=== PATIENT | male | born 1995 | race Caucasian/White ===

== ENCOUNTER 2018-01-22 07:41 | Emergency (ER) | payer OTHER ==
[2018-01-22 07:46] VITALS: BMI 25.0
--- NOTE | 2018-01-22 08:01 | PDOC ---
History of Present Illness - General Chief Complaint: Nausea/Vomiting Stated Complaint: N/V Time Seen by Provider: 01/22/18 07:44 History Source: Patient (Patient walked in complaining of abdominal pain, nausea and vomiting x 3 days . He ate [place] [employer] [place] with friends, they did not have any symptoms.) Exam Limitations: No Limitations - History of Present Illness Timing/Duration: constant, intermittent Severity: moderate Associated Symptoms: reports: loss of appetite, nausea/vomiting Past History - Travel Traveled outside of the country in the last 30 days: No Close contact w/someone who was outside of country & ill: No - Past Medical History Allergies/Adverse Reactions: Allergies Allergy/AdvReac Type Severity Reaction Status Date / Time No Known Allergies Allergy Verified 01/22/18 07:43 Home Medications: Ambulatory Orders NK [No Known Home Medication] 04/12/16 CVA: No COPD: No CHF: No - Surgical History Other Surgical History: Denied any surgical history 01/22/18 08:15 - Family Disease History Family Disease History: Other: Grandparents (cholecystectomy last year) - Immunization History Immunization Up to Date: Yes - Suicide/Smoking/Psychosocial Hx Smoking History: Current every day smoker Number of Cigarettes Smoked Daily: 7 Information on smoking cessation initiated: Yes 'Breaking Loose' booklet given: 01/22/18 Hx Alcohol Use: No Drug/Substance Use Hx: Yes Substance Use Type: Marijuana Review of Systems - Review of Systems Able to Perform ROS?: Yes Is the patient limited Yakut proficient: Yes Constitutional: Yes: See HPI HEENTM: No: Symptoms Reported, See HPI, Eye Pain, Blurred Vision, Tearing, Recent change in vision, Double Vision, Cataracts, Ear Pain, Ocular Prothesis, Ear Discharge, Nose Pain, Nose Congestion, Tinnitus, Nose Bleeding, Hearing Loss , Throat Pain, Throat Swelling, Mouth Pain, Dental Problems, Difficulty Swallowing, Mouth Swelling, Other Respiratory: No: Symptoms reported, See HPI, Cough, Orthopnea, Shortness of Breath, SOB with Exertion, SOB at Rest, Stridor, Wheezing, Productive cough, Hemoptysis, Other Cardiac (ROS): No: Symptoms Reported, See HPI, Chest Pain, Edema, Irregular Heart Rate, Lightheadedness, Palpitations, Syncope, Chest Tightness, Other ABD/GI: Yes: See HPI, Nausea, Poor Appetite, Vomiting. No: Diarrhea Musculoskeletal: No: Symptoms Reported, See HPI, Back Pain, Gout, Joint Pain, Joint Swelling, Muscle Pain, Muscle Weakness, Neck Pain, Joint Stiffness, Other Integumentary: No: Symptoms Reported, See HPI, Bruising, Change in Color, Change in Hair/Nails, Dryness, Erythema, Flushing, Lesions, Lumps, Pallor, Pruritus, Rash, Sweating, Other Neurological: No: Symptoms reported, See HPI, Headache, Numbness, Paresthesia, Pre-Existing Deficit, Seizure, Tingling, Tremors, Weakness, Unsteady Gait, Ataxia, Dizziness, Other Psychiatric: No: Anxiety, Depression, Frequent Crying, Stressors, Sleep Pattern Change, Emotional Problems, Mood Swings, Change in Appetite, Other Endocrine: No: Symptoms Reported, See HPI, Excessive Sweating, Flushing, Intolerance to Cold, Intolerance to Heat, Increased Hunger, Increased Thirst, Increased Urine, Unexplained Weight Gain, Unexplained Weight Loss, Change in Weight, Other All Other Systems: Reviewed and Negative *Physical Exam - Vital Signs Last Vital Signs Temp Pulse Resp BP Pulse Ox 98.5 F 66 18 117/56 L 100 01/22/18 07:42 01/22/18 07:42 01/22/18 07:42 01/22/18 07:42 01/22/18 07:42 - Physical Exam General Appearance: Yes: Nourished, Appropriately Dressed, Moderate Distress, Thin HEENT: positive: [place] Neck: positive: Supple Respiratory/Chest: positive: Lungs Clear Cardiovascular: positive: Regular Rate Gastrointestinal/Abdominal: positive: Normal Bowel Sounds, Tenderness (Mild to moderate throughout the entire abdomen , mainly in the right lower quadrant) Musculoskeletal: positive: Normal Inspection Extremity: positive: Normal Capillary Refill Integumentary: positive: Normal Color, Dry Neurologic: positive: multimedia manager II-XII NML intact, Fully Oriented, Alert, Normal Mood/ Affect ED Treatment Course - LABORATORY CBC & Chemistry Diagram: 01/22/18 08:10 01/22/18 08:10 Medical Decision Making - Critical Care Time Total Critical Care Time (minutes): 30 Critical Care Statement: The care of this patient involved high complexity decision making to prevent further life threatening deterioration of the patient 's condition and/or to evaluate & treat vital organ system(s) failure or risk of failure. - Medical Decision Making Patient was seen immediately from arrival, uncomfortable, vomiting and in pain. Working diagnosis : abdominal pain , vs gallblader disease iv started , medication, iv fluids symptoms controllled US reported at 11:46 Discussed with patient, his mother Keisha [phone] requested to talk with her sister FARM [employer] at [facility] Discussed with Michelle Reyez [phone] Informed us that there is an accepting physician at the [facility] ( [facility]) dr Fe Huff with the agreement of Dr Cutler Called [facility] transfer Center at 12:15 Patient in more pain and nausea. Received MS and Zofran , iv fluids Patient observed every hour by the hour for6 hours 01/22/18 12:30 Discussed with patient's mother and aunt (present here) Awaiting for bed availability 01/22/18 17:19 Patient stable , intermitent pain and nausea, receiving fluids and paincontrol Rx *DC/Admit/Observation/Transfer Diagnosis at time of Disposition: Cholelithiasis and cholecystitis with obstruction Abdominal pain Qualifiers: Abdominal location: right upper quadrant Qualified Code(s): R10.11 - Right upper quadrant pain - Discharge Dispostion Condition at time of disposition: Stable - Referrals - Patient Instructions - Post Discharge Activity - Transfer to Acute Care Facility Receiving Facility: [facility]
[2018-01-22] MEDS ORDERED: ONDANSETRON 4 MG/2 ML VIAL IVPUSH ONE ×2 (08:03→10:57)
[2018-01-22] MEDS ORDERED: SODIUM CHLORIDE 1,000 ML IV STA ×2 (08:04→10:06)
[2018-01-22] MEDS ORDERED: ONDANSETRON 4 MG/2 ML VIAL ONE ×2 (08:11→10:54)
[2018-01-22 08:26] LABS: BASO % 0.5 % (0-2.0); EOS % 0.4 % (0-4.5); HEMOGLOBIN 14.5 GM/dl (11.7-16.9); LYMPH % 14.3 % (8-40); MCH 30.3 pg (25.7-33.7); MCHC 33.6 g/dl (32.0-35.9); MEAN PLT VOLUME 8.3 fl (7.5-11.1); MONO % 3.7 % (3.8-10.2); NEUT % 81.1 % (42.8-82.8); PLATELET COUNT 201 K/MM3 (134-434); RBC 4.78 M/mm3 (4.00-5.60); RDW 12.5 % (11.9-15.9)
[2018-01-22 08:34] LABS: ALBUMIN 4.2 g/dl (3.5-5.0); ALK PHOS 65 U/L (32-92); ANION GAP 10 MMOL/L (8-16); BILIRUBIN,TOTAL 1.8 mg/dl (0.2-1.0); BLOOD UREA NITROGEN 13 mg/dl (7-18); CALCIUM 9.1 mg/dl (8.4-10.2); CHLORIDE 102 mmol/L (98-107); CO2 25 mmol/L (22-28); CREATININE 0.8 mg/dl (0.6-1.3); GLUCOSE,RANDOM 128 mg/dl (74-106); POTASSIUM 3.6 mmol/L (3.5-5.1); SGOT/AST 116 U/L (10-42); SGPT/ALT 179 U/L (10-40); SODIUM 137 mmol/L (136-145); TOT PROT 6.8 g/dl (6.4-8.3)
[2018-01-22 09:26] LABS: AMYLASE 50 U/L (25-125)
[2018-01-22 10:03] LABS: PH,URINE 8.5 (4.5-8); URINE APPEARANCE Clear; URINE BILIRUBIN 2+ (NEGATIVE); URINE COLOR Brown; URINE GLUCOSE (UA) Negative (NEGATIVE); URINE KETONE 3+ (NEGATIVE); URINE NITRITE Negative (NEGATIVE); URINE PROTEIN 2+ (NEGATIVE); URINE UROBILINOGEN 4.0 E.U/dl (0.2-1.0)
[2018-01-22 11:10] LABS: LIPASE 114 U/L (73-393)
[2018-01-22] MEDS ORDERED: morphine CARPU-JECT 2 MG/1 ML DISP.SYRIN IVPUSH ONE (11:37)
[2018-01-22] MEDS ORDERED: morphine SULFATE 4 MG/ML VIAL ONE (11:38)
[2018-01-22 12:37] LABS: URINE LEUK ESTERASE NEGATIVE (NEGATIVE)
[2018-01-22 12:39] LABS: URINE WBC 0-2 (0-2)
[2018-01-22 18:11] VITALS: BP 111/70; PULSE 72; TEMP 98.8
[2018-01-25 06:36] LABS: HBSAG SCREEN Negative (Negative); HEP A AB, IGM Negative (Negative); HEP B CORE AB, TOT Negative (Negative)
== END 2018-01-22 18:25 | disposition short-term general hospital (02) ==
LOC: FER 07:41
PROC: 3E033NZ Introduction of Analgesics, Hypnotics, Sedatives into Peripheral Vein, Percutaneous Approach (ICD-10-PCS; principal; 2018-01-22)
PROC: 3E0337Z Introduction of Electrolytic and Water Balance Substance into Peripheral Vein, Percutaneous Approach (ICD-10-PCS; 2018-01-22)
PROC: 3E033GC Introduction of Other Therapeutic Substance into Peripheral Vein, Percutaneous Approach (ICD-10-PCS; 2018-01-22)
DX: K80.10 Calculus of gallbladder with chronic cholecystitis without obstruction (principal); F17.210 Nicotine dependence, cigarettes, uncomplicated; F10.11 Alcohol abuse, in remission
CPT/HCPCS: 36415; 76700-TC; 80053; 81003; 81015; 82150; 82550; 83690; 85025; 86704; 86706; 86708; 87340; 87522; 99285-25; J7030